=== PATIENT | male | born 1955 | race Caucasian/White ===

== ENCOUNTER → 2019-10-19 | Outpatient (CLI) | payer OTHER ==
[~2019-10-19] MED LIST: AMLODIPINE PO; ASPIRIN325 OR; LISINOPRIL-HCT1 EAC1 PO; SIMVASTATIN20 MG PO; TEKTURNA300 MG PO
== END ==
LOC: LAB 13:56
PROVIDERS: ATTEND Family Medicine
DX: R50.9 Fever, unspecified (principal); R51 Headache; Z20.828 Contact with and (suspected) exposure to other viral communicable diseases

== ENCOUNTER → 2019-11-27 | Outpatient (CLI) | payer OTHER, MEDICARE | LOC: SJCVC 09:00 | PROVIDERS: ATTEND Internal Medicine | DX: Z01.810 Encounter for preprocedural cardiovascular examination (principal); I25.10 Atherosclerotic heart disease of native coronary artery without angina pectoris; I10 Essential (primary) hypertension; E78.5 Hyperlipidemia, unspecified; M15.3 Secondary multiple arthritis; Z82.49 Family history of ischemic heart disease and other diseases of the circulatory system; Z87.891 Personal history of nicotine dependence ==

== ENCOUNTER → 2020-01-05 | Outpatient (CLI) | payer OTHER, MEDICARE | LOC: SJCVCIMAG 07:54 | PROVIDERS: ATTEND Internal Medicine | DX: Z01.818 Encounter for other preprocedural examination (principal); I08.1 Rheumatic disorders of both mitral and tricuspid valves; I49.3 Ventricular premature depolarization; N13.30 Unspecified hydronephrosis; I11.9 Hypertensive heart disease without heart failure; N28.1 Cyst of kidney, acquired; N20.0 Calculus of kidney; I25.10 Atherosclerotic heart disease of native coronary artery without angina pectoris; E78.5 Hyperlipidemia, unspecified; Z87.891 Personal history of nicotine dependence ==

== ENCOUNTER 2020-02-10 20:57 | Inpatient (IN) | payer OTHER, MEDICARE ==
[~2020-02-10] VITALS: Ht 165.1 cm; Wt 111.6 kg
[~2020-02-10 20:57] MED LIST changes: -AMLODIPINE PO; +NORVASC 2.5 MG2.5 M1 PO
[2020-02-10 20:58] VITALS: BP 205/106
[2020-02-10 21:26] LABS: ABSOLUTE NEUTROPHILS 6.8 thou/uL (1.4-8.2); BASOPHILS 0.8 % (0.0-2.0); EOSINOPHILS 4.1 % (0.0-3.0); HEMATOCRIT 48.7 % (42.0-52.0); HEMOGLOBIN 16.7 gm/dL (14.0-18.0); LYMPHOCYTES 21.5 % (24.0-44.0); MCH 31.8 pg (26.0-34.0); MCHC 34.3 g/dL (28.0-37.0); MCV 92.9 fL (80.0-100.0); MONOCYTES 10.3 % (1.0-8.0); PLATELET COUNT 262 thou/uL (150-400); POLYS 63.3 % (36.0-66.0); RBC 5.24 mil/uL (4.50-6.00); RDW 13.5 % (10.5-14.5); WBC 10.8 thou/uL (4.0-11.0)
[2020-02-10] MEDS ORDERED: COZAAR 25 MG TA25 M1 PO (21:26)
[2020-02-10] MEDS ORDERED: TENORMIN25 MG PO (21:26)
[2020-02-10 21:30] LABS: ANION GAP 14 mmol/L (7-16); BUN 30 mg/dL (7-18); CALCIUM 9.5 mg/dL (8.5-10.1); CHLORIDE 102 mmol/L (98-107); CO2 27 mmol/L (21-32); CREATININE 1.3 mg/dL (0.7-1.3); GLUCOSE 198 mg/dL (74-106); SODIUM 143 mmol/L (136-145)
[2020-02-10 21:31] LABS: POTASSIUM 3.5 mmol/L (3.5-5.1)
[2020-02-10 21:40] LABS: ALBUMIN 4.4 g/dL (3.4-5.0); SGOT 23 U/L (15-37); SGPT 30 U/L (30-65); TOTAL BILIRUBIN 0.5 mg/dL (0.2-1.0); TOTAL PROTEIN 7.1 g/dL (6.4-8.2); TROPONIN-I <0.06 ng/mL (<0.06)
[2020-02-10 21:55] VITALS: BP 142/86
[2020-02-10] MEDS ORDERED: HYDROCHLOROTHIA25 M2 PO (23:00)
--- NOTE | 2020-02-10 23:11 | CATHLAB ---
[facility] [place] [address] INVASIVE PROCEDURE REPORT Name: JHON WATTS Room #: 170-11 ADM IN .R.#: [id number] Admission: 02/10/20 Attend Phys: Pavithra Garcia MD Discharge: Date of : 53 Report #: [id number] THIS REPORT FOR: cc: Germán Rocha James A. DO Lundgren, Craig H. MD 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 Manager, Kimberly Sharma RTR, [employer] Monitor, Jairo Rodriguez RN RN, Rajwinder Melendez RTR Scrub Procedures Performed Art Access - R femoral artery* Left Heart Cath w/or w/o Coronaries 7360941 [facility] JOO Revasc AMI Total/Sub Single RCA C9606 AMIREVSING 72903 Initial Mod Sed Same Phys/QHP Gr5y 405061 15431 Mod Sed Same Phys/QHP Ea 624201 Hemostasis w/ Mynx Indication STEMI (>0 to less than or equal to 6 hours), Chest pain Procedure Narrative The patient was brought emergently to the Cardiac Catheterization Laboratory and was prepped and draped in a sterile manner. The Right Groin^ was infiltrated with 1% Lidocaine subcutaneous anesthesia. A PINNACLE 6FR Sheath #[id number] sheath was inserted into the RFA^. Coronary angiography was performed using coronary diagnostic catheters. The right coronary system was accessed and visualized with a JR4 catheter. The left coronary system was accessed and visualized with a JL4 catheter. The left ventricle was accessed and visualized with a ANGLED PIGTAIL catheter. Left ventricular/Aortic Valve gradient assessed via catheter pullback. Left ventriculogram was performed in 30 degree projection. Closure device was deployed with a 6 Fr MYNXGRIP 6/7F #[id number]. The patient tolerated the procedure well and there were no complications associated with the procedure. There was no hematoma. [facility] [address] [place] [address] INVASIVE PROCEDURE REPORT Name: JHON WATTS Room #: 170-11 [facility] IN [facility]#: [id number] Admission: 02/10/20 Attend Phys: Pavithra Garcia, Discharge: Date of : 53 Report #: [id number] Intraoperative Conscious Sedation Sedation start time: 21:59 Case end Time: 22:51 Fentanyl 100 mcg Versed 4 mg Fluoro Time: 5.34 minutes Dose: DAP 8939.00 cGycm2 1237 mGy Contrast Type and Amount: Visipaque 185 ml Coronary Angiography The patient's coronary anatomy is right dominant. Diagnostic Cath Left Main Normal left main LAD 20-30% proximal LAD stenosis 30-40% mid LAD stenosis Diagonal 1 Small first diagonal branch, angiographically normal Circumflex Large but nondominant circumflex OM1 Normal OM1 OM2 Normal bifurcating OM 2 Right Coronary The right coronary was dominant and had been previously stented in its midportion. Subtotaled, ulcerated distal right coronary stenosis 99% R PDA Normal posterior descending RPLV Normal posterior lateral branch Left Ventriculography The left ventricle is normal in size with normal contractility. The left ventricular ejection fraction is estimated to be 60-65%. Left ventricular wall motion abnormalities are present. There is no mitral insufficiency. Minimal inferior wall hypokinesis Hemodynamics The aortic pressure is 167/84 mmHg with a mean of 123 mmHg. The left ventricular pressure is 165/9 mmHg with a mean of mmHg. The left ventricular end diastolic pressure is 28 mmHg. PCI Technique Lesion Anticoagulation was achieved with Heparin, Integrilin. Patient was preloaded with Plavix. Percutaneous coronary intervention was performed on the distal right coronary artery. The lesion stenosis prior to intervention was 99% with NADIA 2 flow. A LAUNCHER 6FR JR 4 #[id number] Guide Catheter was used to engage the right coronary ostium. A Luge Wire .014 x 182CM #[id number] Interventional Guidewire was used to cross the lesion. [facility] [address] [place] [address] INVASIVE PROCEDURE REPORT Name: JHON WATTS Room #: 170-11 [facility] IN M.R.#: [id number] Admission: 02/10/20 Attend Phys: Pavithra Garcia, Discharge: Date of : 53 Report #: [id number] BALLOON DILATION A Balloon catheter Euphora RX 2.5 x 15 #[id number] was inserted and inflated up to 10.00atm for 24seconds. STENT DEPLOYMENT A drug-eluting stent XIENCE SANYA RX 3.5 X 18 #[id number] was inserted and inflated up to 14.00atm for 30seconds. POST STENT DEPLOYMENT BALLOON DILATION A Balloon catheter TREK NC RX 3.5 X 15 #[id number] was inserted and inflated up to 16.00atm for 34seconds. Additional Inflation: 20.00atm for 2seconds. Final angiography reveals 0 % stenosis with NADIA 3 flow. Conclusion 1. Normal global left ventricular systolic function with minimal inferior wall hypokinesis. EF 60% 2. Normal left main 3. Moderate proximal and mid LAD plaquing 4. Normal, nondominant circumflex 5. Critical distal right coronary stenosis stented with a 3.5 x 18 mm Xierra medicated stent, post-dilated to 3.7mm Recommendations Daily ASA with Plavix for at least one year Cardiac Rehabilitation Referral Aggressive Medical Therapy <ELECTRONICALLY SIGNED> By: Herrera Linares MD, FACC 02/10/202310 10 10 Herrera Linares MD, FACC /INF
[2020-02-10 23:21] VITALS: BP 125/87
[2020-02-10 23:45] VITALS: BP 137/79
[2020-02-11] VITALS (12 sets, daily range): BP systolic 129–171; BP diastolic 65–93
[2020-02-11] MEDS ORDERED: LOSARTAN-HCTZ1 EAC3 PO (00:51)
[2020-02-11 04:31] LABS: HEMATOCRIT 42.7 % (42.0-52.0); MCH 31.6 pg (26.0-34.0); MCHC 34.1 g/dL (28.0-37.0); MCV 92.6 fL (80.0-100.0); RBC 4.61 mil/uL (4.50-6.00); RDW 13.5 % (10.5-14.5); WBC 11.5 thou/uL (4.0-11.0)
[2020-02-11 04:35] LABS: ANION GAP 9 mmol/L (7-16); BUN 27 mg/dL (7-18); CHLORIDE 105 mmol/L (98-107); CHOLESTEROL 157 mg/dL (<200); CO2 27 mmol/L (21-32); CREATININE 1.2 mg/dL (0.7-1.3); GLUCOSE 124 mg/dL (74-106); HDL CHOLESTEROL 41 mg/dL (>40); LDL CHOLESTEROL 85 mg/dL (<100); POTASSIUM 3.7 mmol/L (3.5-5.1); SODIUM 141 mmol/L (136-145); TC:HDL 3.8 Ratio (Not establshd); TRIGLYCERIDE 159 mg/dL (<150); VLDL 32 mg/dL (<40)
[2020-02-11 04:36] LABS: SERUM ASSESSMENT Clear
[2020-02-11 04:37] LABS: TROPONIN-I 3.08 ng/mL (<0.06)
[2020-02-11 04:39] LABS: HEMOGLOBIN 14.5 gm/dL (14.0-18.0)
--- NOTE | 2020-02-11 06:57 | NUR ---
ADMIT FROM CUSTOMER CARE ASSOCIATE; RT GROIN SITE C/D/I; SR ON MONITOR/ NO C/O OF CHEST PAIN; BEDREST FOR 5 HOURS AND ENDED AT 0330; PAIN TO RT HIP WITH RELIEF FROM PAIN MEDICATION AND REPOSITIONING; PATIENT IS PROGRESSING WELL TOWARD POC AND DISCHARGE GOALS; WILL CONTINUE TO MONITOR
--- NOTE | 2020-02-11 11:18 | EKG ---
[facility] [place] [address] ELECTROCARDIOGRAM REPORT Name: JHON WATTS Room #: 209-P ADM IN M.R.#: [id number] Admission: 02/10/20 Attend Phys: Pavithra Garcia MD Discharge: Date of : 53 Report #: [id number] THIS REPORT FOR: cc: Germán Rocha James A. DO Couchonnal, Luis F. MD ~ THIS REPORT FOR: //name// [facility] ED Test Date: 2020-02-10 Test Time: 21:10:08 Pat Name: JHON WATTS Department: Room: 209 Gender: M Field Inspector: MPASONNY : 1955 Requested By: Herrera Linares Order Number: [id number] MD: Jim Fry Measurements Intervals [place] Rate: 101 P: 42 [place]: 180 QRS: 24 QRSD: 100 T: 78 QT: 346 QTc: 449 Interpretive Statements Sinus tachycardia ST elevation, consider inferior injury Compared to ECG 10/21/2010 22:01:57 Electronically Signed On 02-11-2020 11:18:06 CDT by Jim Fry [email or web address] <ELECTRONICALLY SIGNED> By: Jim Fry MD 02/11/20 1118 09 09 Jim Fry MD /EPI
--- NOTE | 2020-02-11 11:19 | EKG ---
[facility] [place] [address] ELECTROCARDIOGRAM REPORT Name: JHON WATTS Room #: 209-P ADM IN M.R.#: [id number] Admission: 02/10/20 Attend Phys: Pavithra Garcia MD Discharge: Date of : 53 Report #: [id number] THIS REPORT FOR: cc: Germán Rocha James A. DO Couchonnal, Luis F. 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 : 1955 Requested By: Herrera Linares Order Number: [id number] MD: Jim Fry Measurements Intervals [place] Rate: 74 P: 46 CA: 171 QRS: -19 QRSD: 100 T: -11 QT: 393 QTc: 436 Interpretive Statements Sinus rhythm Atrial premature complex Borderline left axis deviation Abnormal R-wave progression, late transition Borderline T abnormalities, inferior leads Resolution ST elevation inferiorly Compared to ECG 02/10/2020 21:10:08 Electronically Signed On 02-11-2020 11:18:52 CDT by Jim Fry [email or web address] <ELECTRONICALLY SIGNED> By: Jim Fry MD 02/11/20 1118 Jim Fry MD /EPI
--- NOTE | 2020-02-11 18:03 | NUR ---
ASSUMED CARE PT SHIFT CHANGE. ASSESSMENTS CHARTED.MEDS GIVEN PER JUN. PT ALERT AND ORIENTED.VSS. C/O BACK PAIN MANAGED WITH PO MEDS. PT UP INDEPENDENTLY TOLERATING WELL. R GROIN SITE REMAINS CDI, NO HEMATOMA. SPOUSE VISITED WITH PT. PLAN IS FOR PT TO DC HOME TOMORROW. PT CURRENTLY RESTING IN BED DENIES NEEDS/CONCERNS. WILL CONT TO MONITOR PT AND FOLLOW POC. WILL PASS ON REPORT TO KATIE SEQUEIRA.
[2020-02-12 05:35] VITALS: BP 164/82
[2020-02-12] MEDS ORDERED: ASPIRIN325 PO (07:49)
[2020-02-12] MEDS ORDERED: LIPITOR40 MG PO (07:49)
[2020-02-12] MEDS ORDERED: CLOPIDOGREL75 MG PO (07:49)
[2020-02-12 08:09] VITALS: BP 167/80
[2020-02-12 10:38] VITALS: BP 167/80
--- NOTE | 2020-02-12 10:48 | NUR ---
ASSUMED CARE AT CHANGE OF SHIFT. ALERT X4, DENIES PAIN DENIES SOB. RIGHT GROIN SIGHT C/D/I WITH BRUISING. CARDIAC PLUG OVERWRAP MACHINE TENDER REVIEWED POST CATH STENT CARE AND EDUCATION. DC HOME WITH SELF CARE. FOLLOW UP WITH CARDIOLOGY IN FEBRUARY. IV AND TELE REMOVED
--- NOTE | 2020-02-12 12:46 | HC ---
[facility] [address] CONSULTATION Name: JHON WATTS Room #: 209-P [facility] IN .R.#: [id number] Admission: 02/10/20 Attend Phys: Pavithra Garcia MD Discharge: 02/12/20 Date of : 53 Report #: [id number] THIS REPORT FOR: cc: Germán Rocha James A. DO Lundgren, Craig H. MD [facility] ~ DATE OF SERVICE: 02/10/2020 REASON FOR CONSULTATION: Chest pain. HISTORY OF PRESENT ILLNESS: The patient is a 64-year-old gentleman with coronary artery disease with remote stenting at least 10 years ago. He has a history of hypertension and dyslipidemia. He was seen by Dr. Morel on 11/27/2019 in our office and had a variety of tests performed including a myocardial perfusion imaging study. This demonstrated inferior wall infarct without ischemia, ejection fraction was normal. Echocardiography demonstrated normal left ventricular systolic function. Significant valvular disease was absent. Aggressive pharmacologic therapy was recommended. He now presents with 1-hour history of mid sternal chest tightness. This is reminiscent to his pre-stenting pain. He took 2 aspirins at home without relief. He denies heart failure symptoms including orthopnea, paroxysmal nocturnal dyspnea, or lower extremity edema. No history of palpitations, near syncope or syncope. No known drug allergies. MEDICATIONS: Include amlodipine 10 mg daily, atenolol 100 mg daily, citalopram 20 mg daily, losartan 100 mg daily, Dyazide 37.5/25 one tablet daily. PAST MEDICAL HISTORY: Medical records have been reviewed and include a history of colon cancer with remote resection, arthritis, hypertension. 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 Nonsmoker. Drinks an occasional alcoholic beverage. FAMILY HISTORY: Notable for father who had multiple stenting procedures at a young age. REVIEW OF SYSTEMS: All systems negative except as that noted above. PHYSICAL EXAMINATION: GENERAL: A pleasant gentleman who is alert. He has ongoing chest discomfort. VITAL SIGNS: Blood pressure is 140/80, heart rate of 100 and regular, respirations unlabored at 18. He is afebrile, 5 feet 5 inches tall, 215 pounds. HEENT: There are neither xanthelasma, subcutaneous xanthomata, oral mucosal or [facility] [address] [place] [address] CONSULTATION Name: JHON WATTS Room #: 209-P [facility] IN ..#: [id number] Admission: 02/10/20 Attend Phys: Pavithra Garcia MD Discharge: 02/12/20 Date of : 53 Report #: [id number] digital cyanosis or kyphoscoliosis present. CHEST: Clear to auscultation and percussion. CARDIAC: Reveals a regular rate and rhythm with distant heart sounds. No murmurs, gallops or rubs. ABDOMEN: Soft and nontender. EXTREMITIES: Without cyanosis, clubbing or edema. Radial pulses are 2+. NEUROLOGIC: He is alert with a nonfocal exam. LABORATORY DATA: Sodium 143, potassium 4.5, creatinine 1.3, glucose 198. Troponin 0. White count 10.8, hemoglobin 16, hematocrit 48, platelet count 262. Chest x-ray remains pending. EKG, sinus rhythm with a millimeter of inferior ST elevation. IMPRESSION: 1. Acute inferior myocardial infarction. 2. Hypertension. 3. Dyslipidemia. 4. Family history of premature coronary artery disease. RECOMMENDATIONS: 1. Therapy with antiplatelets, anticoagulants. 2. Urgent coronary angiography. I have discussed the angiographic procedure in detail including its associated risks. After a thorough discussion of the procedure, its risks and alternatives and after answering his questions, he is agreeable to proceeding. <ELECTRONICALLY SIGNED> By: Herrera Linares MD, FACC 02/12/20 1246 [id number] Herrera Linares MD, FACC /nt
== END 2020-02-12 11:43 | disposition home or self-care (01) | DRG 246 ==
LOC: ER 20:57 → 2N 21:44 → EROBS 21:44 → 2N 23:48
PROVIDERS: Emergency Medicine; Internal Medicine; ADMIT Internal Medicine; ATTEND Internal Medicine
PROC: 4A023N7 Measurement of Cardiac Sampling and Pressure, Left Heart, Percutaneous Approach (ICD-10-PCS; principal; 2020-02-10)
PROC: B2111ZZ Fluoroscopy of Multiple Coronary Arteries using Low Osmolar Contrast (ICD-10-PCS; principal; 2020-02-10)
PROC: B2151ZZ Fluoroscopy of Left Heart using Low Osmolar Contrast (ICD-10-PCS; principal; 2020-02-10)
PROC: 027034Z Dilation of Coronary Artery, One Artery with Drug-eluting Intraluminal Device, Percutaneous Approach (ICD-10-PCS; 2020-02-10)
DX: I21.19 ST elevation (STEMI) myocardial infarction involving other coronary artery of inferior wall (principal); I50.31 Acute diastolic (congestive) heart failure; I25.10 Atherosclerotic heart disease of native coronary artery without angina pectoris; E78.5 Hyperlipidemia, unspecified; F41.9 Anxiety disorder, unspecified; F32.9 Major depressive disorder, single episode, unspecified; Z85.038 Personal history of other malignant neoplasm of large intestine; Z79.82 Long term (current) use of aspirin; Z82.49 Family history of ischemic heart disease and other diseases of the circulatory system; Z95.5 Presence of coronary angioplasty implant and graft; Z86.73 Personal history of transient ischemic attack (TIA), and cerebral infarction without residual deficits; Z79.899 Other long term (current) drug therapy; I11.0 Hypertensive heart disease with heart failure
CPT/HCPCS: 10081

== ENCOUNTER → 2020-05-13 | Outpatient (CLI) | payer OTHER, MEDICARE ==
[~2020-05-13] MED LIST changes: +ASPIRIN325 PO; +CLOPIDOGREL75 MG PO; +COZAAR 25 MG TA25 M1 PO; +HYDROCHLOROTHIA25 M2 PO; +LIPITOR40 MG PO; +LOSARTAN-HCTZ1 EAC3 PO; +TENORMIN25 MG PO
== END ==
LOC: SJCVC 08:24
PROVIDERS: ATTEND Urology
DX: E78.5 Hyperlipidemia, unspecified (principal)

== ENCOUNTER → 2021-06-02 | Outpatient (CLI) | payer OTHER, MEDICARE | LOC: SJCVC 10:48 | PROVIDERS: ATTEND Internal Medicine | DX: I25.10 Atherosclerotic heart disease of native coronary artery without angina pectoris (principal); E78.5 Hyperlipidemia, unspecified; I10 Essential (primary) hypertension; R01.1 Cardiac murmur, unspecified; Z79.82 Long term (current) use of aspirin; Z79.899 Other long term (current) drug therapy; Z87.891 Personal history of nicotine dependence; Z72.89 Other problems related to lifestyle; Z82.49 Family history of ischemic heart disease and other diseases of the circulatory system ==